=== PATIENT | female | born 1960 | race African-American/Black ===

== ENCOUNTER 2016-07-29 18:49 | Emergency (ER) | payer SELFPAY ==
[2016-07-29] MEDS ORDERED: ASPIRIN 81 MG TABLET, CHEWABLE PO ONE (19:35)
--- NOTE | 2016-07-29 19:36 | ER Document Report ---
ED Medical Screen (RME) - General Stated Complaint: RIGHT SIDED CHEST PAIN Notes: Patient complains of right sided chest and back pain that started on Thursday. Pain radiating down right arm on Thursday., also states her right eye feels lazy like it won't open all the way on Thursday. Denies headache or shortness of breath. States she had the chills on Thursday but no other illness. + Nausea yesterday, no vomiting or diarrhea. She states she has borderline hypertension but is not on any medication. Patient is not diabetic. I have greeted and performed a rapid initial assessment of this patient. A comprehensive ED assessment and evaluation of the patient, analysis of test results and completion of the medical decision making process will be conducted by additional ED providers. TRAVEL OUTSIDE OF THE [place] IN LAST 30 DAYS: No - Related Data Allergies/Adverse Reactions: No Known Allergies Allergy (Verified 01/19/15 10:41) Past Medical History - Past Medical History Cardiac Medical History: Reports: Hx Hypertension Denies: Hx Coronary Artery Disease, Hx Heart Attack Pulmonary Medical History: Denies: Hx Asthma, Hx Bronchitis, Hx COPD, Hx Pneumonia Neurological Medical History: Denies: Hx Cerebrovascular Accident, Hx Seizures Musculoskeltal Medical History: Reports Hx Arthritis Past Surgical History: Reports: Hx Section - 2, Hx Gynecologic Surgery - Laproscopy, Hx Tubal Ligation. Denies: Hx Hysterectomy - Immunizations Immunizations up to date: Yes Hx Diphtheria, Pertussis, Tetanus Vaccination: Yes Physical Exam - Cardiovascular Rhythm: Tachycardia Heart sounds: Normal auscultation
[2016-07-29 20:05] LABS: ABSOLUTE EOSINOPHILS # (AUTO) 0.1 10^3/uL (0.0-0.6); ABSOLUTE LYMPHOCYTES (AUTO) 2.6 10^3/uL (0.5-4.7); ABSOLUTE MONOCYTES (AUTO) 0.8 10^3/uL (0.1-1.4); ABSOLUTE NEUT (AUTO) 3.2 10^3/uL (1.7-8.2); BASOPHILS % (AUTO) 0.5 % (0-2); EOSINOPHILS % (AUTO) 1.3 % (0-6); HEMATOCRIT 37.6 % (36.0-47.0); HEMOGLOBIN 12.4 g/dL (12.0-15.5); HGB HCT DIFFERENCE -0.4; LYMPHOCYTES % (AUTO) 39.2 % (13-45); MEAN CORPUSCULAR HEMOGLOBIN 28.6 pg (27.0-33.4); MEAN CORPUSCULAR VOLUME 87 fl (80-97); MONOCYTES % (AUTO) 11.3 % (3-13); RED BLOOD COUNT 4.34 10^6/uL (3.72-5.28); RED CELL DISTRIBUTION WIDTH 15.8 % (11.5-14.0); SEGMENTED NEUTROPHILS % (AUTO) 47.7 % (42-78); WHITE BLOOD COUNT 6.6 10^3/uL (4.0-10.5)
[2016-07-29 20:08] LABS: APPEARANCE,URINE CLEAR; BILIRUBIN,URINE NEGATIVE (NEGATIVE); GLUCOSE, URINE NEGATIVE (NEGATIVE); KETONES,URINE NEGATIVE (NEGATIVE); LEUKOCYTE ESTERASE,URINE NEGATIVE (NEGATIVE); NITRITE,URINE NEGATIVE (NEGATIVE); PROTEIN,URINE 30 mg/dL (NEGATIVE); PROTHROMBIN TIME 11.3 SEC (11.4-15.4); URINE SPECIFIC GRAVITY 1.017; UROBILINOGEN,URINE NEGATIVE mg/dL (<2.0)
[2016-07-29 20:18] LABS: ALANINE AMINOTRANSFERASE 42 U/L (9-52); ALBUMIN 4.4 g/dL (3.5-5.0); ALKALINE PHOSPHATASE 108 U/L (38-126); ANION GAP 11 (5-19); ASPARTATE AMINO TRANSFERASE 21 U/L (14-36); BILIRUBIN,DIRECT 0.1 mg/dL (0.0-0.4); BILIRUBIN,TOTAL 0.5 mg/dL (0.2-1.3); BLOOD UREA NITROGEN 22 mg/dL (7-20); CALCIUM 9.8 mg/dL (8.4-10.2); CARBON DIOXIDE 31 mmol/L (22-30); CHLORIDE 103 mmol/L (98-107); CREATINE KINASE 100 U/L (30-135); GLUCOSE 113 mg/dL (75-110); POTASSIUM 4.2 mmol/L (3.6-5.0); SODIUM 145.4 mmol/L (137-145); TOTAL PROTEIN 7.6 g/dL (6.3-8.2)
--- NOTE | 2016-07-29 20:26 | EKG REPORT ---
SEVERITY:- BORDERLINE ECG - SINUS TACHYCARDIA PROBABLE LEFT ATRIAL ABNORMALITY BORDERLINE T WAVE ABNORMALITIES : Confirmed by: Marco Dawn 29-Jul-2016 20:25:57
[2016-07-29 20:31] LABS: CREATINE KINASE MB 0.62 ng/mL (<4.55)
[2016-07-29 20:32] LABS: TROPONIN I < 0.012 ng/mL
[2016-07-30] MEDS ORDERED: ASPIRIN 81 MG TABLET, CHEWABLE PO ONE (01:15)
--- NOTE | 2016-07-30 01:35 | ER Document Report ---
ED General - General Mode of Arrival: Ambulatory Information source: Patient TRAVEL OUTSIDE OF THE [place] IN LAST 30 DAYS: No - HPI Patient complains to provider of: Right back, chest, and arm pain Onset: Other - 5 days ago Associated symptoms: Other - see HPI <ABRIL SALAZAR - Last Filed: 07/30/16 01:46> <ELIZABETHHERNAN GRACE - Last Filed: 07/30/16 05:15> - General Chief Complaint: Chest Pain Stated Complaint: RIGHT SIDED CHEST PAIN Notes: 55 year old female presents to the ED complaining of right back, chest, and arm pain that started 5 days ago. Patient reports that the pain started in her back and radiated to her right chest and down her right arm. Patient has been having difficulty "snapping" her fingers and writing with a pencil. Patient is right handed and states that she has been taking care of her grandchildren and has been using her 's pickup truck lately which requires her to lift her body up into the car. Patient is additionally complaining of a drooping right eyelid and twitching. (ABRIL SALAZAR) - Related Data Allergies/Adverse Reactions: No Known Allergies Allergy (Verified 01/19/15 10:41) Past Medical History - General Information source: Patient - Social History Smoking Status: Unknown if Ever Smoked Family History: Reviewed & Not Pertinent, Arthritis, DM, Hypertension, Malignancy - Past Medical History Cardiac Medical History: Reports: Hx Hypertension Renal/ Medical History: Denies: Hx Peritoneal Dialysis Musculoskeltal Medical History: Reports Hx Arthritis Past Surgical History: Reports: Hx Section - 2, Hx Gynecologic Surgery - Laproscopy, Hx Tubal Ligation. Denies: Hx Hysterectomy - Immunizations Immunizations up to date: Yes Hx Diphtheria, Pertussis, Tetanus Vaccination: Yes <ABRIL SALAZAR - Last Filed: 07/30/16 01:46> Review of Systems - Review of Systems Constitutional: No symptoms reported EENT: See HPI, Other - right eyelid drooping and twitching Cardiovascular: See HPI, Chest pain Respiratory: No symptoms reported Gastrointestinal: No symptoms reported Genitourinary: No symptoms reported Female Genitourinary: No symptoms reported Musculoskeletal: See HPI, Back pain - right, Other - right arm pain Skin: No symptoms reported Hematologic/Lymphatic: No symptoms reported Neurological/Psychological: No symptoms reported -: Yes All other systems reviewed and negative <ABRIL SALAZAR - Last Filed: 07/30/16 01:46> Physical Exam - Vital signs Interpretation: Hypertensive - General General appearance: Appears well, Alert - HEENT Head: Normocephalic, Atraumatic Eyes: Normal Pupils: PERRL - Respiratory Respiratory status: No respiratory distress Chest status: Tender - R chest wall tenderness to palpation Breath sounds: Normal Chest palpation: Normal - Cardiovascular Rhythm: Regular Heart sounds: Normal auscultation Murmur: No - Abdominal Inspection: Normal Distension: No distension Bowel sounds: Normal Tenderness: Nontender Organomegaly: No organomegaly - Back Back: Normal, Tender - Right upper back pain tenderness to palpation - Extremities General upper extremity: Normal inspection, Nontender, Normal color, Normal ROM , Normal temperature General lower extremity: Normal inspection, Nontender, Normal color, Normal ROM , Normal temperature, Normal weight bearing. No: Reg's sign - Neurological Neuro grossly intact: Yes Cognition: Normal Orientation: AAOx4 [place] Coma Scale Eye Opening: Spontaneous [place] Coma Scale Verbal: Oriented [place] Coma Scale Motor: Obeys Commands [place] Coma Scale Total: 15 Speech: Normal Motor strength normal: LUE, RUE, LLE, RLE Sensory: Normal - Psychological Associated symptoms: Normal affect, Normal mood - Skin Skin Temperature: Warm Skin Moisture: Dry Skin Color: Normal <HERNAN JOHNSON - Last Filed: 07/30/16 05:15> - Vital signs Vitals: Temp Pulse Resp BP Pulse Ox 98.5 F 123 H 17 183/99 H 95 07/29/16 19:36 07/29/16 19:36 07/29/16 19:36 07/29/16 19:36 07/29/16 19:36 Course - Laboratory Result Diagrams: 07/29/16 19:40 07/29/16 19:40 <ABRIL SALAZAR - Last Filed: 07/30/16 01:46> - Laboratory Result Diagrams: 07/29/16 19:40 07/29/16 19:40 - Diagnostic Test Radiology reviewed: Reports reviewed <HERNAN JOHNSON - Last Filed: 07/30/16 05:15> - Re-evaluation Re-evalutation: 07/30/16 Patient with no acute findings on CTA. Troponin negative 2. Reproducible chest and back pain. Patient does have some cardiomegaly on head CT. She is instructed to follow-up with cardiology and a primary care doctor. Patient appears well. No complaints at this time. Stable for discharge. Return if any worsening or concerning symptoms. (HERNAN JOHNSON) - Vital Signs Vital signs: Temp Pulse Resp BP Pulse Ox 98.5 F 123 H 18 165/100 H 95 07/29/16 19:36 07/29/16 19:36 07/30/16 04:10 07/30/16 04:10 07/30/16 04:10 - Laboratory Laboratory results interpreted by me: 07/29/16 07/29/16 07/29/16 19:40 19:40 19:40 RDW 15.8 H PT 11.3 L Sodium 145.4 H Carbon Dioxide 31 H BUN 22 H Glucose 113 H Urine Protein 07/29/16 19:40 RDW PT Sodium Carbon Dioxide BUN Glucose Urine Protein 30 H Discharge <ABRIL SALAZAR - Last Filed: 07/30/16 01:46> <HERNAN JOHNSON - Last Filed: 07/30/16 05:15> - Discharge Clinical Impression: Musculoskeletal back pain Condition: Stable Disposition: HOME, SELF-CARE Instructions: Chest Wall Pain ([facility]), Upper Back Strain ([facility]) Additional Instructions: Please follow-up with your primary doctor. Please return if your symptoms worsen. Prescriptions: Carisoprodol [Soma] 350 mg PO DAILYP PRN #10 tablet PRN Reason: Referrals: BARB DUMONT MD [ACTIVE STAFF] - Follow up as needed Scribe Attestation: 07/30/16 05:15 I personally performed the services described in the documentation, reviewed and edited the documentation which was dictated to the scribe in my presence, and it accurately records my words and actions. (HERNAN JOHNSON) Scribe Documentation - Scribe Written by Ladonna:: Ladonna Choi, 07/30/2016 0153 acting as scribe for :: Elizabeth <ABRIL SALAZAR - Last Filed: 07/30/16 01:46>
[2016-07-30] MEDS ORDERED: CARISOPRODOL 350 MG TABLET PO ONE (03:51)
[2016-07-30 04:15] VITALS: BP 165/100
== END 2016-07-30 04:31 | disposition home or self-care (01) ==
LOC: ER 18:49
DX: M54.9 Dorsalgia, unspecified (principal); R07.9 Chest pain, unspecified; M79.601 Pain in right arm; H02.401 Unspecified ptosis of right eyelid
CPT/HCPCS: 93005; 99284; 36415; 82553; 82550; 84702; 85025; 85610; 80053; 81001; 84484; 71010; 71275; 93010; J3490

== ENCOUNTER → 2016-08-13 | Outpatient (CLI) | payer OTHER ==
[2016-08-13 10:29] LABS: CHOLESTEROL 199.59 mg/dL (0-200); Direct HDL 58 mg/dL (>40); TRIGLYCERIDES 63 mg/dL (<150)
[2016-08-13 10:39] LABS: DIRECT LDL 104 mg/dL (<100)
== END ==
LOC: CCC 08:47
DX: Z00.00 Encounter for general adult medical examination without abnormal findings (principal); I10 Essential (primary) hypertension
CPT/HCPCS: 36415; 80061; 83036; 84443

== ENCOUNTER → 2016-08-20 | Outpatient (CLI) | payer OTHER ==
--- NOTE | 2016-08-25 23:02 | XCELERA REPORT ---
[address] [address] Transthoracic Echocardiogram Report Name: JAYLA HAHN Age: 55 yrs Gender: Female : 1960 Patient Status: Outpatient Patient Location: Study Date: 08/20/2016 09:42 AM Height: 64 in Weight: 264 lb BSA: 2.2 m2 Procedure: A complete two-dimensional transthoracic echocardiogram was performed (2D, M-mode, spectral and color flow Doppler). The study was technically difficult with many images being suboptimal in quality. Reason For Study: HTN Ordering Physician: BRANDON WELLINGTON Performed By: Trinity Del Real Interpretation Summary The left ventricular ejection fraction is within normal limits. There is mild concentric left ventricular hypertrophy. Doppler measurements suggest pseudonormalized left ventricular relaxation, which is associated with grade II/IV or mild to moderate diastolic dysfunction The left ventricle is grossly normal size. Wall motion cannot be accurately commented on, but no definite regional wall motion abnormalities noted. The right ventricular systolic function is normal. The left atrium is mildly dilated. The right atrium is normal in size There is a mild to moderate amount of mitral regurgitation There is no mitral valve stenosis. There is a trace amount of aortic regurgitation There is no aortic valve stenosis There is a trace or physiologic amount of tricuspid regurgitation Tricuspid regurgitation jet envelope not well defined to measure RV systolic pressure accurately. There is no pericardial effusion. The study was technically difficult with many images being suboptimal in quality. MMode/2D Measurements \T\ Calculations RVDd: 2.4 cm LVIDd: 4.8 cmFS: 34.7 % Ao root diam: 2.7 cm IVSd: 1.1 cm LVIDs: 3.2 cmEDV(Teich): 109.4 ml LVPWd: 1.1 cmESV(Teich): 39.6 ml Ao root area: 5.8 cm2 EF(Teich): 63.8 % LA dimension: 3.8 cm LVOT diam: 2.0 cm LVOT area: 3.1 cm2 Doppler Measurements \T\ Calculations MV E max jose francisco: MV P1/2t max jose francisco: Ao V2 max: LV V1 max P.8 cm/sec 82.5 cm/sec 159.3 cm/sec 3.7 mmHg MV A max jose francisco: MV P1/2t: 40.1 msec Ao max PG: LV V1 max: 78.7 cm/sec MVA(P1/2t): 5.5 cm2 10.1 mmHg 96.1 cm/sec MV E/A: 1.0 MV dec slope: FREDDIE(V,D): 1.9 cm2 602.3 cm/sec2 PA V2 max: 102.2 cm/sec PA max P.2 mmHg Left Ventricle The left ventricle is grossly normal size. There is mild concentric left ventricular hypertrophy. The left ventricular ejection fraction is within normal limits. Doppler measurements suggest pseudonormalized left ventricular relaxation, which is associated with grade II/IV or mild to moderate diastolic dysfunction. Wall motion cannot be accurately commented on, but no definite regional wall motion abnormalities noted. Right Ventricle The right ventricle is grossly normal size. There is normal right ventricular wall thickness. The right ventricular systolic function is normal. Atria The right atrium is normal in size. The left atrium is mildly dilated. Interarterial septum not well visualized and not well dopplered. Cannot comment on ASD/PFO presence. Mitral Valve The mitral valve is grossly normal. There is no mitral valve stenosis. There is a mild to moderate amount of mitral regurgitation. Aortic Valve The aortic valve is grossly normal. There is no aortic valve stenosis. There is a trace amount of aortic regurgitation. Tricuspid Valve The tricuspid valve is not well visualized, but is grossly normal. There is no tricuspid stenosis. There is a trace or physiologic amount of tricuspid regurgitation. Tricuspid regurgitation jet envelope not well defined to measure RV systolic pressure accurately. Pulmonic Valve The pulmonic valve is not well visualized. Great Vessels The aortic root is not well visualized. The inferior vena cava appeared normal and decreased > 50% with respiration (RAP 5-10 mmHg). Effusions There is no pericardial effusion. : BRANDON WELLINGTON > Marco Dawn
== END ==
LOC: SP 09:36
PROVIDERS: ATTEND Internal Medicine
DX: I10 Essential (primary) hypertension (principal); I51.7 Cardiomegaly; R00.0 Tachycardia, unspecified
CPT/HCPCS: 93306

== ENCOUNTER → 2016-10-15 | Outpatient (CLI) | payer OTHER ==
[2016-10-15 17:47] LABS: ANION GAP 11 (5-19); BLOOD UREA NITROGEN 18 mg/dL (7-20); CALCIUM 9.9 mg/dL (8.4-10.2); CARBON DIOXIDE 31 mmol/L (22-30); CHLORIDE 100 mmol/L (98-107); CREATININE RESULT 0.82 mg/dL (0.52-1.25); GLUCOSE 123 mg/dL (75-110); SODIUM 141.9 mmol/L (137-145)
[2016-10-15 17:51] LABS: POTASSIUM 3.9 mmol/L (3.6-5.0)
== END ==
LOC: CCC 16:21
DX: I10 Essential (primary) hypertension (principal); Z79.899 Other long term (current) drug therapy
CPT/HCPCS: 36415; 80048

== ENCOUNTER → 2017-04-02 | Outpatient (CLI) | payer OTHER ==
--- NOTE | 2017-04-02 16:30 | WOMENS IMAGING REPORT ---
EXAM DESCRIPTION: BILAT SCREENING MAMMO W/CAD COMPLETED DATE/TIME: 04/02/2017 11:20 am REASON FOR STUDY: SCREENING MAMMO Z12.31 ENCNTR SCREEN MAMMOGRAM FOR MALIGNANT NEOPLASM OF M[place]HURI COMPARISON: None. TECHNIQUE: Standard craniocaudal and mediolateral oblique views of each breast recorded using digita l acquisition. LIMITATIONS: None. FINDINGS: No masses, calcifications or architectural distortion. No areas of suspicion. Read with the assistance of CAD. .[facility] - R2 Cenova Version 1.3 .[facility] - R2 Cenova Version 1.3 .[facility] - R2 Cenova Version 2.4 .[facility] - R2 Cenova Version 2.4 .[facility] - R2 Motor Rebuilder Version 9.2 IMPRESSION: NORMAL MAMMOGRAM. BIRADS 1. BREAST DENSITY: b. There are scattered areas of fibroglandular density. BIRAD: 1 NEGATIVE RECOMMENDATION: ROUTINE SCREENING COMMENT: The patient has been notified of the results by letter per SA requirements. Additional no tification policies are in place for contacting patient with suspicious or incomplete findings. Quality ID #[id number]: The [employer] recommends an annual screening mammogram for women aged 40 years or over. This facility utilizes a reminder system to ensure that all patients receive reminder letters, and/or direct phone calls for appointments. This includes reminders for routine scr eening mammograms, diagnostic mammograms, or other Breast Imaging Interventions when appropriate. Th is patient will be placed in the appropriate reminder system. The [employer] (ACR) has developed recommendations for screening MRI of the breast s in certain patient populations, to be used in conjunction with mammography. Breast MRI surveillanc e may be appropriate for women with more than 20% lifetime risk of developing breast cancer as deter mined by genetic testing, significant family history of the disease, or history of mantle radiation f or Hodgkins Disease. ACR Practice Guidelines 2008. TECHNICAL DOCUMENTATION: FINDING NUMBER: (1) ASSESSMENT: (1) JOB ID: [id number] [employer]- All Rights Reserved
== END ==
LOC: WI 09:24
DX: Z12.31 Encounter for screening mammogram for malignant neoplasm of breast (principal)
CPT/HCPCS: 77067; G0202

== ENCOUNTER → 2017-06-26 | Outpatient (CLI) | payer OTHER ==
[2017-06-26 09:33] LABS: ABSOLUTE EOSINOPHILS # (AUTO) 0.1 10^3/uL (0.0-0.6); ABSOLUTE LYMPHOCYTES (AUTO) 2.1 10^3/uL (0.5-4.7); ABSOLUTE MONOCYTES (AUTO) 0.5 10^3/uL (0.1-1.4); ABSOLUTE NEUT (AUTO) 2.2 10^3/uL (1.7-8.2); BASOPHILS % (AUTO) 0.6 % (0-2); EOSINOPHILS % (AUTO) 2.1 % (0-6); HEMATOCRIT 35.3 % (36.0-47.0); HEMOGLOBIN 11.7 g/dL (12.0-15.5); LYMPHOCYTES % (AUTO) 42.9 % (13-45); MEAN CORPUSCULAR HEMOGLOBIN 29.2 pg (27.0-33.4); MEAN CORPUSCULAR HGB CONC 33.1 g/dL (32.0-36.0); MEAN CORPUSCULAR VOLUME 89 fl (80-97); MONOCYTES % (AUTO) 9.1 % (3-13); PLATELET COUNT 283 10^3/uL (150-450); RED BLOOD COUNT 3.99 10^6/uL (3.72-5.28); RED CELL DISTRIBUTION WIDTH 15.4 % (11.5-14.0); SEGMENTED NEUTROPHILS % (AUTO) 45.3 % (42-78); TOTAL CELLS COUNTED % (AUTO) 100 %
[2017-06-26 09:55] LABS: ALANINE AMINOTRANSFERASE 35 U/L (9-52); ALBUMIN 4.1 g/dL (3.5-5.0); ALKALINE PHOSPHATASE 94 U/L (38-126); ANION GAP 8 (5-19); ASPARTATE AMINO TRANSFERASE 21 U/L (14-36); BILIRUBIN,DIRECT 0.4 mg/dL (0.0-0.4); BILIRUBIN,TOTAL 0.7 mg/dL (0.2-1.3); BLOOD UREA NITROGEN 17 mg/dL (7-20); CALCIUM 9.2 mg/dL (8.4-10.2); CARBON DIOXIDE 33 mmol/L (22-30); CHLORIDE 104 mmol/L (98-107); GLUCOSE 111 mg/dL (75-110); POTASSIUM 4.3 mmol/L (3.6-5.0); SODIUM 144.8 mmol/L (137-145); TOTAL PROTEIN 7.8 g/dL (6.3-8.2); TRIGLYCERIDES 74 mg/dL (<150)
[2017-06-26 10:06] LABS: DIRECT LDL 114 mg/dL (<100)
== END ==
LOC: CCC 09:00
DX: I10 Essential (primary) hypertension (principal); Z13.1 Encounter for screening for diabetes mellitus
CPT/HCPCS: 36415; 80053; 80061; 83036; 84443; 85025

== ENCOUNTER 2017-08-21 20:59 | Emergency (ER) | payer SELFPAY ==
[2017-08-21] MEDS ORDERED: IPRATROPIUM/ALBUTEROL 0.5-2.5 MG/3 ML AMPUL NEB ONE ×2 (22:10→23:48)
[2017-08-21] MEDS ORDERED: PREDNISONE 20 MG TABLET PO ONE (22:10)
[2017-08-21] MEDS ORDERED: BENZONATATE 100 MG CAPSULE PO ONE (22:10)
--- NOTE | 2017-08-21 22:10 | ER Document Report ---
ED General - General Chief Complaint: Cough Stated Complaint: COUGH Time Seen by Provider: 08/21/17 22:01 Mode of Arrival: Ambulatory Information source: Patient Notes: 56-year-old female history of hypertension presents with complaints of cough congestion of 4 day duration. Patient notes it started off as a dry cough is now yellow productive over the past day. Patient denies any fevers or chills admits to shortness of breath TRAVEL OUTSIDE OF THE [place] IN LAST 30 DAYS: No - HPI Onset: Last week Onset/Duration: Persistent, Worse Quality of pain: Achy Severity: Mild Pain Level: 1 Associated symptoms: Productive cough, Shortness of breath Exacerbated by: Denies Relieved by: Denies Similar symptoms previously: Yes - Patient has had pneumonia in the past Recently seen / treated by doctor: No - Related Data Allergies/Adverse Reactions: No Known Allergies Allergy (Verified 01/19/15 10:41) Past Medical History - Social History Smoking Status: Never Smoker Cigarette use (# per day): No Chew tobacco use (# tins/day): No Smoking Education Provided: No Frequency of alcohol use: None Family History: Reviewed & Not Pertinent, Arthritis, DM, Hypertension, Malignancy - Past Medical History Cardiac Medical History: Reports: Hx Hypertension Denies: Hx Coronary Artery Disease, Hx Heart Attack Pulmonary Medical History: Denies: Hx Asthma, Hx Bronchitis, Hx COPD, Hx Pneumonia Neurological Medical History: Denies: Hx Cerebrovascular Accident, Hx Seizures Renal/ Medical History: Denies: Hx Peritoneal Dialysis Musculoskeltal Medical History: Reports Hx Arthritis Past Surgical History: Reports: Hx Section - 2, Hx Gynecologic Surgery - Laproscopy, Hx Tubal Ligation. Denies: Hx Hysterectomy - Immunizations Immunizations up to date: Yes Hx Diphtheria, Pertussis, Tetanus Vaccination: Yes Review of Systems - Review of Systems Notes: REVIEW OF SYSTEMS: CONSTITUTIONAL : Denies fever, chills, or sweats. Denies recent illness. EENT: Denies eye, ear, throat, or mouth pain or symptoms. Denies nasal or sinus congestion or discharge. Denies throat, tongue, or mouth swelling or difficulty swallowing. CARDIOVASCULAR: Denies chest pain. Denies palpitations or racing or irregular heart beat. Denies ankle edema. RESPIRATORY: Admits to cough congestion GASTROINTESTINAL: Denies abdominal pain or distention. Denies nausea, vomiting , or diarrhea. Denies blood in vomitus, stools, or per rectum. Denies black, tarry stools. Denies constipation. GENITOURINARY: Denies difficulty urinating, painful urination, burning, frequency, blood in urine, or discharge. FEMALE GENITOURINARY: Denies vaginal bleeding, heavy or abnormal periods, irregular periods. Denies vaginal discharge or odor. MUSCULOSKELETAL: Denies back or neck pain or stiffness. Denies joint pain or swelling. SKIN: Denies rash, lesions or sores. HEMATOLOGIC : Denies easy bruising or bleeding. LYMPHATIC: Denies swollen, enlarged glands. NEUROLOGICAL: Denies confusion or altered mental status. Denies passing out or loss of consciousness. Denies dizziness or lightheadedness. Denies headache. Denies weakness or paralysis or loss of use of either side. Denies problems with gait or speech. Denies sensory loss, numbness, or tingling. Denies seizures. PSYCHIATRIC: Denies anxiety or stress. Denies depression, suicidal ideation, or homicidal ideation. ALL OTHER SYSTEMS REVIEWED AND NEGATIVE. PHYSICAL EXAMINATION: GENERAL: Well-appearing, well-nourished and in no acute distress. Patient is noted to be satting 92% on room air HEAD: Atraumatic, normocephalic. EYES: Pupils equal round and reactive to light, extraocular movements intact, conjunctiva are normal. ENT: Nares patent, oropharynx clear without exudates. Moist mucous membranes. NECK: Normal range of motion, supple without lymphadenopathy LUNGS: End expiratory wheezing with coarse rhonchi HEART: Tachycardic ABDOMEN: Soft, nontender, nondistended abdomen. No guarding, no rebound. No masses appreciated. Female : deferred Musculoskeletal: Normal range of motion, no pitting or edema. No cyanosis. NEUROLOGICAL: Cranial nerves grossly intact. Normal speech, normal gait. Normal sensory, motor exams PSYCH: Normal mood, normal affect. SKIN: Warm, Dry, normal turgor, no rashes or lesions noted. Dictation was performed using [employer] voice recognition software Physical Exam - Vital signs Vitals: Temp Pulse Resp BP Pulse Ox 98.6 F 102 H 20 156/75 H 93 08/21/17 21:49 08/21/17 21:49 08/21/17 21:49 08/21/17 21:49 08/21/17 21:49 Course - Re-evaluation Re-evalutation: 08/21/17 22:20 Patient will be started on breathing treatments chest x-ray pending, overall she looks well but is having some wheezing, imaging will rule out any other abnormalities but this appears to be bronchitis versus pneumonia very low suspicion for a pulmonary emboli given the presentation 08/22/17 00:54 Patient's x-ray noted no significant abnormality, after breathing treatments her pulse ox notes 98% on room air, she overall looks well is in no distress, patient will be given follow-up with primary care physician After performing a Medical Screening Examination, I estimate there is LOW risk for ACUTE CORONARY SYNDROME, PULMONARY EMBOLI, RESPIRATORY FAILURE, SEPSIS OR MENINGITIS, thus I consider the discharge disposition reasonable. I have reevaluated this patient multiple times and no significant life threatening changes are noted. The patient and I have discussed the diagnosis and risks, and we agree with discharging home with close follow-up. We also discussed returning to the Emergency Department immediately if new or worsening symptoms occur. We have discussed the symptoms which are most concerning (e.g., changing or worsening pain, trouble swallowing or breathing, neck stiffness, fever) that necessitate immediate return. - Vital Signs Vital signs: Temp Pulse Resp BP Pulse Ox 98.6 F 102 H 20 156/75 H 93 08/21/17 21:49 08/21/17 21:49 08/21/17 21:49 08/21/17 21:49 08/21/17 21:49 - Diagnostic Test Radiology reviewed: Image reviewed - 2 view chest xray noted no acute abnormality, Reports reviewed Discharge - Discharge Clinical Impression: Hypoxemia URI (upper respiratory infection) Qualifiers: URI type: unspecified viral URI Qualified Code(s): J06.9 - Acute upper respiratory infection, unspecified Condition: Stable Disposition: HOME, SELF-CARE Instructions: Upper Respiratory Illness ([facility]) Additional Instructions: Follow up with your physician tomorrow for further care or return to the ED IMMEDIATELY if symptoms worsen or new concerns occur. If you cannot afford to follow up with your primary care physician a list of low cost clinics have been provided at the end of your discharge papers as well. Prescriptions: Azithromycin 250 mg PO ASDIR PRN #6 tablet PRN Reason: Prednisone [Deltasone 20 mg Tablet] 3 tab PO DAILY 5 Days tablet
--- NOTE | 2017-08-21 22:51 | RADIOLOGY REPORT (SQ) ---
EXAM DESCRIPTION: CHEST 2 VIEWS COMPLETED DATE/TIME: 08/21/2017 10:33 pm REASON FOR STUDY: cough COMPARISON: 07/29/2016 EXAM PARAMETERS: NUMBER OF VIEWS: two views TECHNIQUE: Digital Frontal and Lateral radiographic views of the chest acquired. RADIATION DOSE: NA LIMITATIONS: none FINDINGS: LUNGS AND PLEURA: No acute opacities, masses or pneumothorax. No pleural effusion. MEDIASTINUM AND HILAR STRUCTURES: No masses or contour abnormalities. HEART AND VASCULAR STRUCTURES: Heart normal size. No evidence for failure. BONES: No acute findings. HARDWARE: None in the chest. OTHER: No other significant finding. IMPRESSION: NO ACUTE RADIOGRAPHIC FINDING IN THE CHEST. TECHNICAL DOCUMENTATION: JOB ID: [id number] 2010 [employer]- All Rights Reserved Reading location - IP/workstation name: [email or web address]
[2017-08-22] MEDS ORDERED: ALBUTEROL SULFATE HFA (90 MCG/PUFF) 8 GM MDI (1 MDI/ER DISP) IH PRN (00:54)
[2017-08-22 01:14] VITALS: BP 156/84
== END 2017-08-22 01:14 | disposition home or self-care (01) ==
LOC: ER 20:59
DX: J06.9 Acute upper respiratory infection, unspecified (principal); R09.02 Hypoxemia; I10 Essential (primary) hypertension; Z98.51 Tubal ligation status
CPT/HCPCS: 94640 ×2; 99283; 71046; J7512; J3490; J7620 ×2

== ENCOUNTER 2017-09-04 22:29 | Emergency (ER) | payer SELFPAY ==
[2017-09-04] MEDS ORDERED: NYSTATIN/DEXAMETH/DIPHEN SUSP 120 ML PO ONE ×2 (23:01→23:25)
[2017-09-04] MEDS ORDERED: FLUCONAZOLE 100 MG TABLET PO ONE (23:01)
--- NOTE | 2017-09-04 23:02 | ER Document Report ---
ED ENT - General Chief Complaint: Sore Throat Stated Complaint: SORE THROAT Time Seen by Provider: 09/04/17 22:55 Mode of Arrival: Ambulatory Information source: Patient Notes: Patient is a 56-year-old female who presents to the ER today for right discharge on her tongue, sore throat 1 day, itching and thick white discharge from the vagina 1 day. Patient states that she was just on antibiotics for sinus infection and finished them 2 days ago. She states that the thick white discharge on her tongue is able to be scratched off. She denies any fever, chills that she knows of, cough. TRAVEL OUTSIDE OF THE [place] IN LAST 30 DAYS: No - Related Data Allergies/Adverse Reactions: No Known Allergies Allergy (Verified 01/19/15 10:41) Past Medical History - General Information source: Patient - Social History Smoking Status: Never Smoker Family History: Reviewed & Not Pertinent, Arthritis, DM, Hypertension, Malignancy Patient has suicidal ideation: No Patient has homicidal ideation: No - Past Medical History Cardiac Medical History: Reports: Hx Hypertension Denies: Hx Coronary Artery Disease, Hx Heart Attack Pulmonary Medical History: Denies: Hx Asthma, Hx Bronchitis, Hx COPD, Hx Pneumonia Neurological Medical History: Denies: Hx Cerebrovascular Accident, Hx Seizures Renal/ Medical History: Denies: Hx Peritoneal Dialysis Musculoskeltal Medical History: Reports Hx Arthritis Past Surgical History: Reports: Hx Section - 2, Hx Gynecologic Surgery - Laproscopy, Hx Tubal Ligation. Denies: Hx Hysterectomy - Immunizations Immunizations up to date: Yes Hx Diphtheria, Pertussis, Tetanus Vaccination: Yes Review of Systems - Review of Systems Constitutional: No symptoms reported EENT: See HPI Cardiovascular: No symptoms reported Respiratory: No symptoms reported Gastrointestinal: No symptoms reported Genitourinary: No symptoms reported Female Genitourinary: See HPI Musculoskeletal: No symptoms reported Skin: No symptoms reported Hematologic/Lymphatic: No symptoms reported Neurological/Psychological: No symptoms reported Physical Exam - Vital signs Vitals: Temp Pulse Resp BP Pulse Ox 98.9 F 123 H 18 173/88 H 94 09/04/17 22:33 09/04/17 22:33 09/04/17 22:33 09/04/17 22:33 09/04/17 22:33 - Notes Notes: PHYSICAL EXAMINATION: GENERAL: Well-appearing and in no acute distress. HEAD: Atraumatic, normocephalic. EYES: Pupils equal round and reactive to light, extraocular movements intact, sclera anicteric, conjunctiva are normal. ENT: ear canals without erythema or foreign body, TMs pearly rivas with good bony landmarks, nares patent, oropharynx erythematous without enlarged tonsils and without exudates.tongue with white discharge able to be scraped off, Moist mucous membranes. NECK: Normal range of motion, supple without lymphadenopathy LUNGS: CTAB and equal. No wheezes rales or rhonchi. HEART: Regular rate and rhythm without murmurs ABDOMEN: Soft, no tenderness. No guarding, no rebound BACK: no vertebral tenderness, normal ROM GI/: no CVA tenderness EXTREMITIES: Normal range of motion, no pitting edema. No cyanosis. NEUROLOGICAL: Cranial nerves grossly intact. Normal sensory/motor exams. PSYCH: Normal mood, normal affect. SKIN: Warm, Dry, normal turgor, no rashes or lesions noted Course - Re-evaluation Re-evalutation: 09/05/17 00:07 Patient treated with Magic mouthwash which includes nystatin, Benadryl and Decadron here, will be sent home with a bottle of 120 mL from the emergency department to swish and swallow every 8 hours. Patient also given 1 dose of Diflucan. Patient declined pelvic exam here stating "I know it is a yeast infection." Pt pulse when coming into ER was 125bpm, on discharge 108bpm, says "i usually have a fast pulse." She is afebrile and clinically looks well. 09/05/17 06:44 - Vital Signs Vital signs: Temp Pulse Resp BP Pulse Ox 98.8 F 108 H 16 164/76 H 98 09/05/17 00:13 09/05/17 00:13 09/05/17 00:13 09/05/17 00:13 09/05/17 00:13 Discharge - Discharge Clinical Impression: Thrush, Sore throat Condition: Stable Disposition: HOME-SNF (ED ONLY) Instructions: Oral Thrush ([facility]), Sore Throat ([facility]) Additional Instructions: Return immediately for any new or worsening symptoms. Follow up with primary care provider, call tomorrow to make followup appointment.
[2017-09-05 00:16] VITALS: BP 164/76
== END 2017-09-05 00:16 ==
LOC: ER 22:29
DX: B37.9 Candidiasis, unspecified (principal); J02.9 Acute pharyngitis, unspecified; I10 Essential (primary) hypertension
CPT/HCPCS: 87070; 87880; 99283; J3490

== ENCOUNTER 2017-09-07 10:04 | Emergency (ER) | payer SELFPAY ==
--- NOTE | 2017-09-07 10:29 | ER Document Report ---
ED Medical Screen (RME) - General Chief Complaint: Blurred Vision Stated Complaint: BLURRY VISION, NAUSEA Time Seen by Provider: 09/07/17 10:24 Notes: RAPID MEDICAL EVALUATION DISCLOSURE I have seen this patient as part of a Rapid Medical Evaluation and, if applicable, placed any initially appropriate orders. The patient will be seen and fully evaluated, including a full history and physical exam, by a provider ( in Main ED or Fast Track) when a room becomes available. 56-year-old female here with complaints of blurry vision, increased thirst, and generalized weakness ongoing for the past few days. Two weeks ago she had a cold and then last week she had a yeast infection as well as sore throat however she is here today because the newest symptom is blurry vision. TRAVEL OUTSIDE OF THE [place] IN LAST 30 DAYS: No - Related Data Allergies/Adverse Reactions: No Known Allergies Allergy (Verified 09/07/17 10:10) Past Medical History - Past Medical History Cardiac Medical History: Reports: Hx Hypertension Denies: Hx Coronary Artery Disease, Hx Heart Attack Pulmonary Medical History: Denies: Hx Asthma, Hx Bronchitis, Hx COPD, Hx Pneumonia Neurological Medical History: Denies: Hx Cerebrovascular Accident, Hx Seizures Renal/ Medical History: Denies: Hx Peritoneal Dialysis Musculoskeltal Medical History: Reports Hx Arthritis Past Surgical History: Reports: Hx Section - 2, Hx Gynecologic Surgery - Laproscopy, Hx Tubal Ligation. Denies: Hx Hysterectomy - Immunizations Immunizations up to date: Yes Hx Diphtheria, Pertussis, Tetanus Vaccination: Yes Physical Exam - Vital signs Vitals: Temp Pulse Resp BP Pulse Ox 97.9 F 113 H 20 151/87 H 95 09/07/17 10:23 09/07/17 10:23 09/07/17 10:09/07/17 10:09/07/17 10:23 Course - Vital Signs Vital signs: Temp Pulse Resp BP Pulse Ox 97.9 F 113 H 20 151/87 H 95 09/07/17 10:09/07/17 10:23 09/07/17 10:23 09/07/17 10:23 09/07/17 10:23
[2017-09-07] MEDS ORDERED: NORMAL SALINE 1000 ML 1,000 ML IV ONE (10:30)
--- NOTE | 2017-09-07 10:39 | ER Document Report ---
ED General - General Chief Complaint: Blurred Vision Stated Complaint: BLURRY VISION, NAUSEA Time Seen by Provider: 09/07/17 10:24 Mode of Arrival: Ambulatory Information source: Patient Notes: This is a 56-year-old female with a history of hypertension, recent respiratory infection status post treatment with azithromycin and prednisone (finished 1 week ago) who now presents with blurry vision, nausea, weakness, loose bowels. Accu-Chek in triage shows 543. Patient has no known history of diabetes. TRAVEL OUTSIDE OF THE [place] IN LAST 30 DAYS: No - HPI Onset: Last week Onset/Duration: Gradual Quality of pain: No pain Severity: None Pain Level: Denies Associated symptoms: denies: Chest pain, Fever, Nausea, Vomiting, Shortness of breath Exacerbated by: Denies Relieved by: Denies Similar symptoms previously: No Recently seen / treated by doctor: No - Related Data Allergies/Adverse Reactions: No Known Allergies Allergy (Verified 09/07/17 10:10) Past Medical History - General Information source: Patient - Social History Smoking Status: Never Smoker Cigarette use (# per day): No Chew tobacco use (# tins/day): No Frequency of alcohol use: None Drug Abuse: None Lives with: Family Family History: Reviewed & Not Pertinent, Arthritis, DM, Hypertension, Malignancy Patient has suicidal ideation: No Patient has homicidal ideation: No - Past Medical History Cardiac Medical History: Reports: Hx Hypertension Denies: Hx Coronary Artery Disease, Hx Heart Attack Pulmonary Medical History: Denies: Hx Asthma, Hx Bronchitis, Hx COPD, Hx Pneumonia Neurological Medical History: Denies: Hx Cerebrovascular Accident, Hx Seizures Renal/ Medical History: Denies: Hx Peritoneal Dialysis Musculoskeltal Medical History: Reports Hx Arthritis Past Surgical History: Reports: Hx Section - 2, Hx Gynecologic Surgery - Laproscopy, Hx Tubal Ligation. Denies: Hx Hysterectomy - Immunizations Immunizations up to date: Yes Hx Diphtheria, Pertussis, Tetanus Vaccination: Yes Review of Systems - Review of Systems Constitutional: denies: Chills, Fever EENT: See HPI Cardiovascular: No symptoms reported Respiratory: No symptoms reported Gastrointestinal: No symptoms reported Genitourinary: No symptoms reported Female Genitourinary: No symptoms reported Musculoskeletal: No symptoms reported Skin: No symptoms reported Hematologic/Lymphatic: No symptoms reported Neurological/Psychological: See HPI Physical Exam - Vital signs Vitals: Temp Pulse Resp BP Pulse Ox 97.9 F 113 H 20 151/87 H 95 09/07/17 10:23 09/07/17 10:23 09/07/17 10:23 09/07/17 10:23 09/07/17 10:23 Notes: Physical exam: GENERAL: 56-year-old female, alert and oriented 3, no acute distress HEAD: Atraumatic, normocephalic. EYES: Pupils equal round and reactive to light, extraocular movements intact, sclera anicteric, conjunctiva are normal. ENT: TMs normal, nares patent, oropharynx clear without exudates. Moist mucous membranes. NECK: Normal range of motion, supple without obvious mass or JVD. LUNGS: Breath sounds clear to auscultation bilaterally and equal. No wheezes rales or rhonchi. HEART: Regular rate and rhythm without murmurs, rubs or gallops. ABDOMEN: Soft, normoactive bowel sounds. No tenderness to palpation. No guarding, no rebound. No masses appreciated. EXTREMITIES: Normal range of motion, no pitting or edema. No clubbing or cyanosis. NEUROLOGICAL: Cranial nerves II through XII grossly intact. Normal speech, moving all extremities. PSYCH: Normal mood, normal affect. SKIN: Warm, Dry, normal turgor, no rashes or lesions noted. Course - Re-evaluation Re-evalutation: 09/07/17 18:21 Patient was given IV fluids. She was given IV insulin and sugar was brought down. She is feeling much better. She states that the blurry vision has resolved. I did have a long discussion with her about the diabetes and reducing sugar intake. She will be following up with [facility]. - Vital Signs Vital signs: Temp Pulse Resp BP Pulse Ox 98.9 F 104 H 18 147/70 H 95 09/07/17 17:43 09/07/17 17:43 09/07/17 17:43 09/07/17 17:43 09/07/17 17:43 - Laboratory Result Diagrams: 09/07/17 10:55 09/07/17 10:55 Laboratory results interpreted by me: 09/07/17 09/07/17 09/07/17 10:13 10:20 10:55 RDW 15.2 H VBG HCO3 Sodium Chloride Carbon Dioxide Glucose POC Glucose 543 H* ALT Alkaline Phosphatase Total Protein Urine Protein 30 H Urine Glucose (UA) >=500 H Urine Blood SMALL H Ur Leukocyte Esterase SMALL H 09/07/17 09/07/17 09/07/17 10:55 10:55 13:18 RDW VBG HCO3 32.7 H Sodium 135.8 L Chloride 91 L Carbon Dioxide 33 H Glucose 585 H* POC Glucose 340 H ALT 54 H Alkaline Phosphatase 183 H Total Protein 8.3 H Urine Protein Urine Glucose (UA) Urine Blood Ur Leukocyte Esterase 09/07/17 09/07/17 09/07/17 14:08 16:00 17:22 RDW VBG HCO3 Sodium Chloride Carbon Dioxide Glucose POC Glucose 315 H 293 H 254 H ALT Alkaline Phosphatase Total Protein Urine Protein Urine Glucose (UA) Urine Blood Ur Leukocyte Esterase - Diagnostic Test Radiology reviewed: Image reviewed, Reports reviewed - Test x-ray shows no infiltrates - EKG Interpretation by Me Rate: Tachycardia Rhythm: NSR - EKG shows sinus tachycardia with a ventricular rate of 102, no acute ST elevations or depressions compared to old EKG (07/29/16). Patient has been noted to be tachycardic in the past. Discharge - Discharge Clinical Impression: Diabetes Condition: Stable Disposition: HOME, SELF-CARE Additional Instructions: As we discussed, your labs show that you have diabetes. This may have been exacerbated by the recent dose of steroids that she received. I would strongly encourage you to reduce your sugar intake. Do not drink any sweet tea. Avoid desserts. Take medicines as prescribed. Follow-up with the [facility]. Prescriptions: Metformin HCl [Glucophage 500 mg Tablet] 500 mg PO BID #60 tablet Referrals: [facility] [Provider Group] - Follow up as needed
[2017-09-07 10:55] LABS: APPEARANCE,URINE SLIGHTLY-CLOUDY; BILIRUBIN,URINE NEGATIVE (NEGATIVE); COLOR,URINE STRAW; GLUCOSE, URINE >=500 mg/dL (NEGATIVE); KETONES,URINE NEGATIVE (NEGATIVE); LEUKOCYTE ESTERASE,URINE SMALL (NEGATIVE); NITRITE,URINE NEGATIVE (NEGATIVE); PROTEIN,URINE 30 mg/dL (NEGATIVE); URINE SPECIFIC GRAVITY 1.028; UROBILINOGEN,URINE NEGATIVE mg/dL (<2.0)
[2017-09-07 11:16] LABS: ABSOLUTE EOSINOPHILS # (AUTO) 0.1 10^3/uL (0.0-0.6); ABSOLUTE LYMPHOCYTES (AUTO) 1.9 10^3/uL (0.5-4.7); ABSOLUTE MONOCYTES (AUTO) 0.6 10^3/uL (0.1-1.4); ABSOLUTE NEUT (AUTO) 4.1 10^3/uL (1.7-8.2); BASOPHILS % (AUTO) 0.5 % (0-2); HEMATOCRIT 38.3 % (36.0-47.0); HEMOGLOBIN 12.7 g/dL (12.0-15.5); LYMPHOCYTES % (AUTO) 28.4 % (13-45); MEAN CORPUSCULAR HEMOGLOBIN 29.7 pg (27.0-33.4); MEAN CORPUSCULAR HGB CONC 33.3 g/dL (32.0-36.0); MEAN CORPUSCULAR VOLUME 89 fl (80-97); MONOCYTES % (AUTO) 8.5 % (3-13); PLATELET COUNT 268 10^3/uL (150-450); RED CELL DISTRIBUTION WIDTH 15.2 % (11.5-14.0); SEGMENTED NEUTROPHILS % (AUTO) 61.6 % (42-78); TOTAL CELLS COUNTED % (AUTO) 100 %; WHITE BLOOD COUNT 6.6 10^3/uL (4.0-10.5)
[2017-09-07 11:22] LABS: VENOUS BLOOD BASE EXCESS 5.8 mmol/L; VENOUS BLOOD HCO3 32.7 mmol/L (20-32); VENOUS BLOOD PCO2 56.9 mmHg (35-63); VENOUS BLOOD PH 7.38 (7.30-7.42)
[2017-09-07 11:27] LABS: ALANINE AMINOTRANSFERASE 54 U/L (9-52); ALBUMIN 4.3 g/dL (3.5-5.0); ALKALINE PHOSPHATASE 183 U/L (38-126); ANION GAP 12 (5-19); ASPARTATE AMINO TRANSFERASE 24 U/L (14-36); BILIRUBIN,DIRECT 0.2 mg/dL (0.0-0.4); BLOOD UREA NITROGEN 17 mg/dL (7-20); CALCIUM 10.1 mg/dL (8.4-10.2); CARBON DIOXIDE 33 mmol/L (22-30); CHLORIDE 91 mmol/L (98-107); POTASSIUM 4.5 mmol/L (3.6-5.0); SODIUM 135.8 mmol/L (137-145); TOTAL PROTEIN 8.3 g/dL (6.3-8.2)
[2017-09-07 11:37] LABS: GLUCOSE 585 mg/dL (75-110)
[2017-09-07] MEDS ORDERED: INSULIN REG, HUMAN 100 UNIT/ML 3 ML VIAL (PYX) IV ONE ×3 (11:57→16:04)
[2017-09-07] MEDS ORDERED: RINGERS SOLUTION,LACTATED 1,000 ML IV ONE (12:00)
--- NOTE | 2017-09-07 14:10 | EKG REPORT ---
SEVERITY:- ABNORMAL ECG - SINUS TACHYCARDIA CONSIDER LEFT VENTRICULAR HYPERTROPHY NONSPECIFIC T ABNORMALITIES, INFERIOR LEADS : Confirmed by: Diomedes Bragg MD 07-Sep-2017 14:09:48
[2017-09-07] MEDS ORDERED: METFORMIN HCL 500 MG TABLET PO ONE (16:04)
[2017-09-07 17:44] VITALS: BP 147/70
--- NOTE | 2017-09-08 15:12 | RADIOLOGY REPORT (SQ) ---
EXAM DESCRIPTION: CHEST 2 VIEWS COMPLETED DATE/TIME: 09/07/2017 10:46 am REASON FOR STUDY: cough COMPARISON: 08/21/2017 EXAM PARAMETERS: NUMBER OF VIEWS: Two view. TECHNIQUE: Frontal and lateral radiographic views of the chest acquired. RADIATION DOSE: N/A LIMITATIONS: None. FINDINGS: LUNGS AND PLEURA: No opacities, masses or pneumothorax. No pleural effusion. MEDIASTINUM AND HILAR STRUCTURES: No masses. No contour abnormalities. HEART AND VASCULAR STRUCTURES: Heart normal in size and contour. No evidence for failure. BONES: No acute findings. HARDWARE: None. OTHER: No other significant finding. IMPRESSION: NO SIGNIFICANT RADIOGRAPHIC FINDING IN THE CHEST. TECHNICAL DOCUMENTATION: JOB ID: [id number] [employer]- All Rights Reserved Reading location - IP/workstation name: [email or web address]
== END 2017-09-07 18:41 | disposition home or self-care (01) ==
LOC: ER 10:04
DX: E11.9 Type 2 diabetes mellitus without complications (principal); H53.8 Other visual disturbances; R00.0 Tachycardia, unspecified; R11.0 Nausea; R53.1 Weakness; R19.4 Change in bowel habit; I10 Essential (primary) hypertension; Z83.3 Family history of diabetes mellitus
CPT/HCPCS: 93005; 99284; 96360; 96361; 36415; 82962; 85025; 80053; 81001; 82803; 71046; 93010; J1815; J7030; J7120

== ENCOUNTER → 2018-06-02 | Outpatient (CLI) | payer OTHER ==
[2018-06-02 10:26] LABS: ABSOLUTE EOSINOPHILS # (AUTO) 0.1 10^3/uL (0.0-0.6); ABSOLUTE LYMPHOCYTES (AUTO) 2.2 10^3/uL (0.5-4.7); ABSOLUTE MONOCYTES (AUTO) 0.5 10^3/uL (0.1-1.4); ABSOLUTE NEUT (AUTO) 2.4 10^3/uL (1.7-8.2); BASOPHILS % (AUTO) 0.2 % (0-2); EOSINOPHILS % (AUTO) 1.4 % (0-6); HEMATOCRIT 35.1 % (36.0-47.0); HEMOGLOBIN 11.8 g/dL (12.0-15.5); LYMPHOCYTES % (AUTO) 42.3 % (13-45); MEAN CORPUSCULAR HEMOGLOBIN 29.7 pg (27.0-33.4); MEAN CORPUSCULAR HGB CONC 33.5 g/dL (32.0-36.0); MEAN CORPUSCULAR VOLUME 89 fl (80-97); MONOCYTES % (AUTO) 10.5 % (3-13); PLATELET COUNT 264 10^3/uL (150-450); RED BLOOD COUNT 3.97 10^6/uL (3.72-5.28); RED CELL DISTRIBUTION WIDTH 15.6 % (11.5-14.0); SEGMENTED NEUTROPHILS % (AUTO) 45.6 % (42-78); TOTAL CELLS COUNTED % (AUTO) 100 %; WHITE BLOOD COUNT 5.2 10^3/uL (4.0-10.5)
[2018-06-02 10:47] LABS: ALANINE AMINOTRANSFERASE 34 U/L (9-52); ALBUMIN 4.5 g/dL (3.5-5.0); ALKALINE PHOSPHATASE 101 U/L (38-126); ANION GAP 7 (5-19); ASPARTATE AMINO TRANSFERASE 17 U/L (14-36); BILIRUBIN,DIRECT 0.2 mg/dL (0.0-0.4); BILIRUBIN,TOTAL 0.5 mg/dL (0.2-1.3); BLOOD UREA NITROGEN 17 mg/dL (7-20); CALCIUM 9.6 mg/dL (8.4-10.2); CARBON DIOXIDE 34 mmol/L (22-30); CHLORIDE 100 mmol/L (98-107); CHOLESTEROL 210.22 mg/dL (0-200); GLUCOSE 179 mg/dL (75-110); POTASSIUM 4.5 mmol/L (3.6-5.0); SODIUM 141.3 mmol/L (137-145); TOTAL PROTEIN 8.4 g/dL (6.3-8.2); TRIGLYCERIDES 105 mg/dL (<150)
[2018-06-02 10:58] LABS: DIRECT LDL 104 mg/dL (<100)
== END ==
LOC: CCC 08:43
DX: I10 Essential (primary) hypertension (principal); E11.8 Type 2 diabetes mellitus with unspecified complications
CPT/HCPCS: 36415; 80053; 80061; 83036; 84443; 85025

== ENCOUNTER 2018-06-08 14:06 | Emergency (ER) | payer OTHER ==
[2018-06-08] MEDS ORDERED: IPRATROPIUM/ALBUTEROL 0.5-2.5 MG/3 ML AMPUL NEB ONE (16:08)
[2018-06-08 16:35] LABS: A TYPE INFLUENZA AG NEGATIVE (NEGATIVE); B INFLUENZA AG NEGATIVE (NEGATIVE)
--- NOTE | 2018-06-08 16:38 | RADIOLOGY REPORT (SQ) ---
EXAM DESCRIPTION: CHEST 2 VIEWS COMPLETED DATE/TIME: 06/08/2018 4:29 pm REASON FOR STUDY: cough, chills, eval for pneumonia COMPARISON: 09/07/2017 EXAM PARAMETERS: NUMBER OF VIEWS: two views TECHNIQUE: Digital Frontal and Lateral radiographic views of the chest acquired. RADIATION DOSE: NA LIMITATIONS: none FINDINGS: LUNGS AND PLEURA: No opacities, masses or pneumothorax. No pleural effusion. MEDIASTINUM AND HILAR STRUCTURES: No masses or contour abnormalities. HEART AND VASCULAR STRUCTURES: Heart normal size. No evidence for failure. BONES: No acute findings. HARDWARE: None in the chest. OTHER: No other significant finding. IMPRESSION: No evidence of focal airspace disease or other acute cardiopulmonary process. TECHNICAL DOCUMENTATION: JOB ID: [id number] [employer]- All Rights Reserved Reading location - IP/workstation name: [email or web address]
--- NOTE | 2018-06-08 16:55 | ER Document Report ---
HPI - HPI Time Seen by Provider: 06/08/18 15:40 Pain Level: 4 Notes: Patient is a 57-year-old female presenting with chief complaint of body aches, congestion, cough with yellow sputum, weakness, nausea that have all been lasting 3 days. Patient reports she has been taking [id number] medications with minimal relief. Patient denies any vomiting or diarrhea. - CONSTITUTIONAL Constitutional: REPORTS: Chills - RESPIRATORY Respiratory: REPORTS: Coughing - REPRODUCTIVE Reproductive: DENIES: : Past Medical History - General Information source: Patient - Social History Smoking Status: Never Smoker Family History: Reviewed & Not Pertinent, Arthritis, DM, Hypertension, Malignancy Patient has suicidal ideation: No Patient has homicidal ideation: No - Past Medical History Cardiac Medical History: Reports: Hx Hypertension Denies: Hx Coronary Artery Disease, Hx Heart Attack Pulmonary Medical History: Denies: Hx Asthma, Hx Bronchitis, Hx COPD, Hx Pneumonia Neurological Medical History: Denies: Hx Cerebrovascular Accident, Hx Seizures Renal/ Medical History: Denies: Hx Peritoneal Dialysis Musculoskeletal Medical History: Reports Hx Arthritis Past Surgical History: Reports: Hx Section - 2, Hx Gynecologic Surgery - Laproscopy, Hx Tubal Ligation. Denies: Hx Hysterectomy - Immunizations Immunizations up to date: Yes Hx Diphtheria, Pertussis, Tetanus Vaccination: Yes Vertical Provider Document - CONSTITUTIONAL Notes: PHYSICAL EXAMINATION: GENERAL: Well-appearing, well-nourished and in no acute distress. HEAD: Atraumatic, normocephalic. EYES: Pupils equal round extraocular movements intact, conjunctiva are normal. ENT: Nares patent with clear rhinorrhea, no tonsillar swelling noted. No erythema or exudates noted on tonsils. NECK: Normal range of motion LUNGS: No respiratory distress, lung sounds clear to auscultation bilaterally. Occasional cough noted. Musculoskeletal: Normal range of motion NEUROLOGICAL: Normal speech, normal gait. PSYCH: Normal mood, normal affect. SKIN: Warm, Dry, normal turgor, no rashes or lesions noted. - INFECTION CONTROL TRAVEL OUTSIDE OF THE [place] IN LAST 30 DAYS: No Course - Re-evaluation Re-evalutation: Influenza testing is negative. Chest x-ray is unremarkable with no evidence of pneumonia. Likely viral upper respiratory illness. Discussed this with the patient. Reinforced [id number] medications as well as Tylenol and ibuprofen for pain and body aches. Patient verbalizes understanding and agreement with same. - Vital Signs Vital signs: Temp Pulse Resp BP Pulse Ox 98.5 F 87 16 150/86 H 95 06/08/18 14:45 06/08/18 14:45 06/08/18 14:45 06/08/18 14:45 06/08/18 14:45 Discharge - Discharge Clinical Impression: Viral upper respiratory illness Condition: Stable Disposition: HOME, SELF-CARE Additional Instructions: Your symptoms are most likely due to a viral infection it should resolve over the next 7-14 days. You should take cmws-uzv-miymiyl guanfacine per bottle instructions to help thin the mucus. For nasal congestion: I would recommend that you get aglk-yuz-swmkimk oxymetazoline also known is afrin. Use only per bottle instructions and be sure to never use this for more than 3 days if you can develop severe rebound congestion. You may also use tylenol or ibuprofen as needed for aches and thorat discomfort. Please be sure to drink plenty of fluids and get rest. Return to the emergency department he began having difficulty breathing, chest pain, persistent vomiting, or any other symptoms that are concerning to you. Forms: Return to Work Referrals: [facility] [Primary Care Provider] - Follow up as needed
[2018-06-08] MEDS ORDERED: ALBUTEROL SULFATE HFA (90 MCG/PUFF) 8 GM MDI (1 MDI/ER DISP) IH ONE (16:59)
[2018-06-08 17:01] VITALS: BP 142/82
== END 2018-06-08 17:05 | disposition home or self-care (01) ==
LOC: ER 14:06
DX: J06.9 Acute upper respiratory infection, unspecified (principal); B97.89 Other viral agents as the cause of diseases classified elsewhere; R05 Cough; I10 Essential (primary) hypertension; J34.89 Other specified disorders of nose and nasal sinuses
CPT/HCPCS: 94640; 99284; 87804; 71046; J3490; J7620

== ENCOUNTER → 2018-10-18 | Outpatient (CLI) | payer OTHER ==
[2018-10-18 09:41] LABS: CHOLESTEROL 209.98 mg/dL (0-200); TRIGLYCERIDES 80 mg/dL (<150)
[2018-10-18 09:52] LABS: DIRECT LDL 103 mg/dL (<100)
== END ==
LOC: CCC 08:26
DX: E11.8 Type 2 diabetes mellitus with unspecified complications (principal); E78.2 Mixed hyperlipidemia
CPT/HCPCS: 36415; 80061; 83036

== ENCOUNTER → 2019-06-01 | Outpatient (CLI) | payer OTHER ==
[2019-06-01 11:28] LABS: HEMATOCRIT 35.7 % (36.0-47.0); HEMOGLOBIN 11.9 g/dL (12.0-15.5); MEAN CORPUSCULAR HGB CONC 33.3 g/dL (32.0-36.0); MEAN CORPUSCULAR VOLUME 87 fl (80-97); PLATELET COUNT 282 10^3/uL (150-450); RED CELL DISTRIBUTION WIDTH 15.9 % (11.5-14.0)
[2019-06-01 11:47] LABS: ALBUMIN 4.4 g/dL (3.5-5.0); ALKALINE PHOSPHATASE 110 U/L (38-126); ANION GAP 5 (5-19); ASPARTATE AMINO TRANSFERASE 27 U/L (14-36); BILIRUBIN,TOTAL 0.8 mg/dL (0.2-1.3); BLOOD UREA NITROGEN 12 mg/dL (7-20); CALCIUM 9.9 mg/dL (8.4-10.2); CARBON DIOXIDE 34 mmol/L (22-30); CHLORIDE 101 mmol/L (98-107); CHOLESTEROL 197.57 mg/dL (0-200); GLUCOSE 141 mg/dL (75-110); POTASSIUM 4.4 mmol/L (3.6-5.0); TOTAL PROTEIN 8.9 g/dL (6.3-8.2); TRIGLYCERIDES 84 mg/dL (<150)
[2019-06-01 11:58] LABS: DIRECT LDL 113 mg/dL (<100)
[2019-06-01 12:18] LABS: ABSOLUTE MONOCYTES # (MANUAL) 0.4 10^3/uL (0.1-1.4); BASOPHILS % (MANUAL) 1 % (0-2); EOSINOPHILS % (MANUAL) 0 % (0-6); LYMPHOCYTES % (MANUAL) 37 % (13-45); MONOCYTES % (MANUAL) 7 % (3-13); SEGMENTED NEUTROPHILS % (MAN) 33 % (42-78); TOTAL CELLS COUNTED 100
[2019-06-01 12:22] LABS: ANISOCYTOSIS SLIGHT; PLATELET COMMENT ADEQUATE; POLYCHROMASIA SLIGHT
[2019-06-01 12:24] LABS: OVALOCYTES SLIGHT
[2019-06-02 11:12] LABS: PATH REVIEW PATHOLOGIST REVIEWED
== END ==
LOC: CCC 10:38
DX: E11.9 Type 2 diabetes mellitus without complications (principal); I10 Essential (primary) hypertension; E78.5 Hyperlipidemia, unspecified
CPT/HCPCS: 36415; 80053; 80061; 83036; 84443; 85025

== ENCOUNTER → 2019-06-28 | Outpatient (CLI) | payer OTHER ==
--- NOTE | 2019-06-28 17:09 | EKG REPORT ---
SEVERITY:- BORDERLINE ECG - SINUS RHYTHM BORDERLINE T ABNORMALITIES, DIFFUSE LEADS : Confirmed by: Marlena Nunez MD 28-Jun-2019 17:07:46
== END ==
LOC: CCC 10:19
DX: I10 Essential (primary) hypertension (principal); E11.9 Type 2 diabetes mellitus without complications
CPT/HCPCS: 93005; 93010

== ENCOUNTER → 2019-12-23 | Outpatient (CLI) | payer OTHER ==
[2019-12-23 09:57] LABS: ABSOLUTE EOSINOPHILS # (AUTO) 0.1 10^3/uL (0.0-0.6); ABSOLUTE LYMPHOCYTES (AUTO) 2.1 10^3/uL (0.5-4.7); ABSOLUTE MONOCYTES (AUTO) 0.6 10^3/uL (0.1-1.4); ABSOLUTE NEUT (AUTO) 2.7 10^3/uL (1.7-8.2); BASOPHILS % (AUTO) 0.3 % (0-2); EOSINOPHILS % (AUTO) 1.2 % (0-6); HEMATOCRIT 34.8 % (36.0-47.0); HEMOGLOBIN 11.7 g/dL (12.0-15.5); LYMPHOCYTES % (AUTO) 39.1 % (13-45); MEAN CORPUSCULAR HGB CONC 33.6 g/dL (32.0-36.0); MEAN CORPUSCULAR VOLUME 86 fl (80-97); MONOCYTES % (AUTO) 10.8 % (3-13); PLATELET COUNT 270 10^3/uL (150-450); RED BLOOD COUNT 4.03 10^6/uL (3.72-5.28); RED CELL DISTRIBUTION WIDTH 16.1 % (11.5-14.0); SEGMENTED NEUTROPHILS % (AUTO) 48.6 % (42-78); TOTAL CELLS COUNTED % (AUTO) 100 %; WHITE BLOOD COUNT 5.5 10^3/uL (4.0-10.5)
[2019-12-23 10:18] LABS: ALBUMIN 4.1 g/dL (3.5-5.0); ALKALINE PHOSPHATASE 114 U/L (38-126); ANION GAP 7 (5-19); ASPARTATE AMINO TRANSFERASE 17 U/L (14-36); BILIRUBIN,TOTAL 0.8 mg/dL (0.2-1.3); BLOOD UREA NITROGEN 15 mg/dL (7-20); CALCIUM 9.4 mg/dL (8.4-10.2); CARBON DIOXIDE 33 mmol/L (22-30); CHLORIDE 100 mmol/L (98-107); CHOLESTEROL 186.87 mg/dL (0-200); GLUCOSE 259 mg/dL (75-110); POTASSIUM 4.5 mmol/L (3.6-5.0); TOTAL PROTEIN 8.6 g/dL (6.3-8.2); TRIGLYCERIDES 98 mg/dL (<150)
[2019-12-23 10:43] LABS: DIRECT LDL 106 mg/dL (<100)
== END ==
LOC: CCC 09:02
PROVIDERS: ATTEND Internal Medicine
DX: E11.8 Type 2 diabetes mellitus with unspecified complications (principal); I10 Essential (primary) hypertension
CPT/HCPCS: 36415; 80053; 80061; 83036; 84443; 85025

== ENCOUNTER → 2020-01-26 | Outpatient (CLI) | payer OTHER ==
[2020-01-26 09:42] LABS: ANION GAP 7 (5-19); BLOOD UREA NITROGEN 20 mg/dL (7-20); CALCIUM 9.4 mg/dL (8.4-10.2); CARBON DIOXIDE 30 mmol/L (22-30); CHLORIDE 103 mmol/L (98-107); GLUCOSE 130 mg/dL (75-110); POTASSIUM 4.2 mmol/L (3.6-5.0)
== END ==
LOC: CCC 08:12
PROVIDERS: ATTEND Internal Medicine
DX: E11.9 Type 2 diabetes mellitus without complications (principal)
CPT/HCPCS: 36415; 80048

== ENCOUNTER → 2020-02-01 | Outpatient (CLI) | payer BC ==
--- NOTE | 2020-02-01 08:53 | WOMENS IMAGING REPORT ---
EXAM DESCRIPTION: KARISSA WARRIOR 3D BILAT SCREEN IMAGES COMPLETED DATE/TIME: 02/01/2020 7:35 am [facility]AS[facility] FOR STUDY[facility] FOR MALIGNANT NEOPLASM OF BREAST Z12.31 ENCNTR SCREEN MAMMOGRAM FOR MALIGNANT NEOPLASM OF [place]URI COMPARISON: 2016 EXAM PARAMETERS: Views: Standard craniocaudal and mediolateral oblique views of each breast recorded using digital acquisition and breast tomosynthesis. Read with the assistance of CAD. .[facility] - R2 Kiln Worker Version 9.2 LIMITATIONS: None. FINDINGS: No suspicious masses, suspicious calcifications or architectural distortion. No areas of c oncern. IMPRESSION: NEGATIVE MAMMOGRAM. BIRADS 1. BREAST DENSITY: b. There are scattered areas of fibroglandular density. BIRAD: ASSESSMENT: 1 NEGATIVE RECOMMENDATION: ROUTINE SCREENING COMMENT: The patient has been notified of the results by letter per MQSA requirements. Additional no tification policies are in place for contacting patient with suspicious or incomplete findings. Quality ID #[id number]: The [employer] recommends an annual screening mammogram for women aged 40 years or over. This facility utilizes a reminder system to ensure that all patients receive reminder letters, and/or direct phone calls for appointments. This includes reminders for routine scr eening mammograms, diagnostic mammograms, or other Breast Imaging Interventions when appropriate. Th is patient will be placed in the appropriate reminder system. TECHNICAL DOCUMENTATION: FINDING NUMBER: (1) ASSESSMENT: (1) JOB ID: [id number] 2010 [employer]- All Rights Reserved Reading location - IP/workstation name: [email or web address]
== END ==
LOC: WI 07:12
PROVIDERS: ATTEND Midwife
DX: Z12.31 Encounter for screening mammogram for malignant neoplasm of breast (principal)
CPT/HCPCS: 77063

== ENCOUNTER → 2020-03-26 | Outpatient (CLI) | payer OTHER ==
[2020-03-26 09:56] LABS: ANION GAP 9 (5-19); BLOOD UREA NITROGEN 20 mg/dL (7-20); CALCIUM 9.6 mg/dL (8.4-10.2); CARBON DIOXIDE 30 mmol/L (22-30); CHLORIDE 101 mmol/L (98-107); GLUCOSE 95 mg/dL (75-110); POTASSIUM 4.7 mmol/L (3.6-5.0)
== END ==
LOC: CCC 08:39
PROVIDERS: ATTEND Internal Medicine
DX: E11.8 Type 2 diabetes mellitus with unspecified complications (principal)
CPT/HCPCS: 36415; 80048; 83036